=== PATIENT | male | born 2000 | race African-American/Black ===

== ENCOUNTER 2022-01-12 16:27 | Emergency (ER) | payer OTHER ==
[~2022-01-12] VITALS: Ht 185.4 cm; Wt 142.9 kg
[2022-01-12] MEDS ORDERED: KETOROLAC TROMETH 30 MG/ML 1ML VIAL IV ONE (17:00)
[2022-01-12] MEDS ORDERED: METOCLOPRAMIDE HCL 5MG/ml INJ 2ml VIAL IV ONE (17:00)
[2022-01-12] MEDS ORDERED: LIDOCAINE 2%HCL (LOCAL ANESTH.) INJ 10ml MDV IJ ONE ×2 (17:15)
[2022-01-12] MEDS ORDERED: MIDAZOLAM HCL 5 MG/ML-1ML VIAL IV ONE (17:30)
[2022-01-12] MEDS ORDERED: ETOMIDATE (2MG/ML) 20ML VIAL IV ONE (17:30)
[2022-01-12] MEDS ORDERED: PROPOFOL 10 MG/ML 20 ML IV ONE ×2 (18:45→19:45)
[2022-01-12] MEDS ORDERED: SODIUM CHLORIDE 0.9% 500 ML IV ONE (18:45)
[2022-01-12] MEDS ORDERED: PROPOFOL 100 ML IV ONE (18:51)
[2022-01-12] MEDS: KETAMINE 50mg/ML 10ml Vial (500mg/10ml) IM ONE ×2 (18:58→19:00)
[2022-01-12] MEDS ORDERED: PROPOFOL 100 ML IV SCH (19:00)
[2022-01-12 20:12] VITALS: BP 139/79
== END 2022-01-12 21:22 ==
LOC: EDBD 16:27 → EEVIPCON 16:27 → ER 16:27
DX: S83.005A Unspecified dislocation of left patella, initial encounter (principal); W18.39XA Other fall on same level, initial encounter; Y93.89 Activity, other specified; Y92.89 Other specified places as the place of occurrence of the external cause; Y99.8 Other external cause status
CPT/HCPCS: 27560; 73560; 96361; 96374; 96375; 99152; 99153; 99285; J1885; J2001; J2250; J2704; J2765; J7040